=== PATIENT | female | born 1975 | race Caucasian/White ===

== ENCOUNTER 2024-08-01 17:48 | Emergency (ER) | payer SELFPAY ==
--- NOTE | 2024-08-01 19:42 | RAD REPORT ---
EXAM: XR Knee Right 3 View HISTORY: [facility] MAIN PAIN Bed Name: [id number] COMPARISON: None TECHNIQUE: 3 views of the right knee were obtained. FINDINGS: Moderate knee effusion is seen. There is no evidence of acute fracture or dislocation. Mil d to moderate degenerative changes with some joint space loss most notable at the medial weightbearing compartment. No soft tissue swelling or other soft tissue abnormality is present. IMPRESSION: No evidence of acute osseous abnormality. Moderate knee joint effusion. Up to moderate os teoarthritic changes.
--- NOTE | 2024-08-01 19:43 | RAD REPORT ---
EXAMINATION: US RIGHT LOWER EXTREMITY VENOUS DOPPLER CLINICAL INDICATION: [facility] MAIN right leg Pain;Swelling Bed Name: [id number] Y TECHNIQUE: Complete bilateral duplex sonography of the RIGHT lower extremity veins was performed. The examination included compression for vein patency, color Doppler imaging and flow augmentation in response to distal compression of the distal external iliac, common femoral, femoral, popliteal, tibi al, and great and small saphenous veins. COMPARISON: No prior exam. FINDINGS: Duplex sonography testing of the veins of the RIGHT lower extremity was performed. Color flow imaging shows all veins to be compressible with [id number] color filling. Pulsatile and phasic flow is present within all lower extremity deep and superficial veins examined. IMPRESSION: No evidence of deep venous thrombosis.
[2024-08-01] MEDS ORDERED: HYDROCODONE/APAP 7.5/325 MG TAB ONE (20:37)
--- NOTE | 2024-08-01 20:38 | EDPHYS ---
Physician Documentation [facility] Name: Cyndie Caban Age: 49 yrs Sex: Female : 1975 Arrival Date: 08/01/2024 Time: 17:48 Bed 12 Private MD: ED Physician Artie Lerner HPI: 08/01 18:40 This 49 yrs old Female presents to ER via Wheelchair with complaints of Knee Pain. cp 18:40 The patient presents with pain, that is acute. cp 18:40 The complaints affect the right knee. Context: resulted from an unknown cause, patient cp does reports walking more over past several days. Onset: The symptoms/episode began/occurred over past couple days. Associated signs and symptoms: Pertinent positives: calf tenderness, swelling, Pertinent negatives fever, numbness, rash, warmth, weakness. Treatment prior to arrival includes: no previous treatment. Historical: - Allergies: 18:34 No Known Allergies; aa5 - PMHx: 18:34 Breast Cancer; Gastric ulcers; aa5 - PSHx: 18:34 Lymph nodes removed from right arm; Right mastectomy; aa5 - Immunization history:: Adult Immunizations unknown. - Infectious Disease History:: Denies. - Social history:: Smoking status: Patient reports the use of cigarette tobacco products. ROS: 18:45 MS/extremity: Positive for decreased range of motion, pain, swelling, tenderness, of cp the right knee, Negative for injury or acute deformity, paresthesias, 18:45 Eyes: Negative for injury, pain, redness, and discharge, cp 18:45 Constitutional: Negative for body aches, chills, fever, poor PO intake, 18:45 ENT: Negative for ear pain, sore throat, 18:45 Cardiovascular: Negative for chest pain, edema, palpitations, 18:45 Respiratory: Negative for cough, wheezing, 18:45 Abdomen/GI: Negative for abdominal pain, nausea, vomiting, and diarrhea, 18:45 Skin: Negative for cellulitis, rash, 18:45 All other systems are negative, Exam: 18:50 Constitutional: The patient appears in no acute distress, alert, awake, cp non-diaphoretic, non-toxic, well developed, well nourished, uncomfortable, 18:50 Head/Face: Normocephalic, atraumatic. cp 18:50 Eyes: Periorbital structures: appear normal, Conjunctiva: normal, Sclera: no appreciated abnormality, Lids and lashes: appear normal, bilaterally, 18:50 ENT: External ear(s): are unremarkable, Nose: is normal, Mouth: Lips: moist, 18:50 Chest/axilla: Inspection: normal, 18:50 Cardiovascular: Rate: tachycardic, 18:50 Respiratory: the patient does not display signs of respiratory distress, Respirations: normal, no use of accessory muscles, no retractions, labored breathing, is not present, Breath sounds: are clear throughout, no decreased breath sounds, no stridor, no wheezing, 18:50 Abdomen/GI: Exam negative for discomfort, distension, guarding, Inspection: abdomen appears normal, 18:50 Back: pain, is absent, ROM is normal, 18:50 Musculoskeletal/extremity: Extremities: noted in the right knee: moderate swelling noted, tenderness, pain with passive ROM, overlying skin w/o signs of cellulitis, 18:50 Neuro: Orientation: to person, place \T\ time. Mentation: is normal, Vital Signs: 18:35 BP 146 / 83; Pulse 102; Resp 18 S; Temp 98.4(O); Pulse Ox 100% on R/A; Weight 83.91 kg aa5 (R); Height 5 ft. 6 in. (R); 21:18 BP 142 / 86; Pulse 99; Resp 18; Pulse Ox 100% ; vc1 18:35 Body Mass Index 29.86 (83.91 kg, 167.64 cm) aa5 Procedures: 20:40 Splinting: using knee immobilizer, Patient tolerated well, crutches given. cp MDM: 18:34 Medical Screening Exam initiated cp 20:00 Differential diagnosis: dislocation, closed fracture, septic joint, effusion, sprain. 20:38 Data reviewed: vital signs, nurses notes, radiologic studies, plain films, and as a cp result, I will discharge patient. 20:38 I considered the following discharge prescriptions or medication management in the emergency department Medications were administered in the Emergency Department. See MAR. Independent interpretation of the following test(s) in the Emergency Department X-Ray: My interpretation is images of right knee negative for fracture. Counseling: I had a detailed discussion with the patient and/or guardian regarding the historical points, exam findings, and any diagnostic results supporting the discharge/admit diagnosis, radiology results, the need for outpatient follow up, a orthopedic surgeon, to return to the emergency department if symptoms worsen or persist or if there are any questions or concerns that arise at home. Response to treatment: the patient's symptoms have mildly improved after treatment, and as a result, I will discharge patient. 08/01 18:35 Order name: US Extremity Venous Unilateral Ltd; Complete Time: 20:04 cp 08/01 18:35 Order name: XRAY Knee RIGHT 3 view; Complete Time: 20:04 cp 08/01 20:04 Interpretation: Report reviewed. cp 08/01 20:31 Order name: Knee Immobilizer; Complete Time: 21:00 cp Administered Medications: 20:38 Drug: Hydrocodone-Acetaminophen PO (7.5 mg-325 mg) 1 tabs PO once; RASS on ADMIN: vc1 Combtv4, Very Agttd3, Agttd2, Rstlss1, AlertClm0, Drwsy-1, Lt Sdtn-2, Mod Sdtn-3, Dp Sdtn-4, UnArsble-5 Route: PO; 21:19 Follow up: Response: Medication administered at discharge. vc1 Disposition Summary: 08/01/24 20:38 Discharge Ordered Notes: Location: Home cp Problem: new cp Symptoms: have improved cp Condition: Stable cp Diagnosis - Effusion, right knee cp - Pain in right knee cp Followup: cp - With: Papito Cook MD - When: 2 - 3 days - Reason: Recheck today's complaints Discharge Instructions: - Discharge Summary Sheet cp - Elastic Bandage and RICE Therapy cp - Knee Effusion cp - How to Use a Knee Immobilizer cp - Acute Knee Pain, Adult cp Forms: - Medication Reconciliation Form cp - Antibiotic Education cp - Prescription Opioid Use cp - Patient Portal Instructions cp - Leadership Thank You Letter cp Prescriptions: - Anaprox DS 550 mg Oral Tablet - take 1 tablet ORAL route every 12 hours As needed; 20 tablet; Refills: 0, cp Product Selection Permitted - Tramadol 50 mg Oral Tablet - take 1 tablet ORAL route every 8 hours as needed; 12 tablet; Refills: 0, cp Product Selection Permitted Signatures: Dispatcher [facility] Crystal Ely RN RN aa5 Page, Jim, PA PA cp Calcote, Estefani, RN RN vc1 Corrections: (The following items were deleted from the chart) 18:35 18:35 Extremity Venous Uni Ltd+US.RAD.BRZ ordered. EDMS EDMS 18:35 18:35 Knee Right 3 View+RAD.RAD.BRZ ordered. EDMS EDMS 20:38 20:21 Crutches ordered. cp vc1 08/02 18:22 12 18:40 This 49 yrs old Female presents to ER via Wheelchair with complaints of cp Knee Pain. cp 08/02 18:25 18:24 Splinting: using knee immobilizer, Patient tolerated well, crutches given. cp cp
--- NOTE | 2024-08-01 20:38 | ER ---
Nurse's Notes [facility] Name: Cyndie Caban Age: 49 yrs Sex: Female : 1975 Arrival Date: 08/01/2024 Time: 17:48 Bed 12 Private MD: Diagnosis: Effusion, right knee;Pain in right knee Presentation: 08/01 18:35 Chief complaint: Patient states: right knee pain and swelling. Coronavirus screen: At aa5 this time, the client does not indicate any symptoms associated with coronavirus-19. Ebola Screen: Patient denies travel to an Ebola-affected area in the 21 days before illness onset. Initial Sepsis Screen: Does the patient meet any 2 criteria? HR > 90 bpm. Does the patient have a suspected source of infection? No. Patient's initial sepsis screen is negative. Risk Assessment: Do you want to hurt yourself or someone else? Patient reports no desire to harm self or others. Onset of symptoms was August 01, 2024. 18:35 Method Of Arrival: Wheelchair aa5 18:35 Acuity: ISAAK 4 aa5 Historical: - Allergies: 18:34 No Known Allergies; aa5 - PMHx: 18:34 Breast Cancer; Gastric ulcers; aa5 - PSHx: 18:34 Lymph nodes removed from right arm; Right mastectomy; aa5 - Immunization history:: Adult Immunizations unknown. - Infectious Disease History:: Denies. - Social history:: Smoking status: Patient reports the use of cigarette tobacco products. Screenin:17 [facility] ED Fall Risk Assessment (Adult) History of falling in the last 3 months, vc1 including since admission No falls in past 3 months (0 pts) Confusion or Disorientation No (0 pts) Intoxicated or Sedated No (0 pts) Impaired Gait No (0 pts) Mobility Assist Device Used No (0 pt) Altered Elimination No (0 pt) Score/Fall Risk Level 0 - 2 = Low Risk Oriented to surroundings, Maintained a safe environment, Educated pt \T\ family on fall prevention, incl call for assistance when getting out of bed. Abuse screen: Denies threats or abuse. Nutritional screening: No deficits noted. Tuberculosis screening: No symptoms or risk factors identified. Vital Signs: 18:35 BP 146 / 83; Pulse 102; Resp 18 S; Temp 98.4(O); Pulse Ox 100% on R/A; Weight 83.91 kg aa5 (R); Height 5 ft. 6 in. (R); 21:18 BP 142 / 86; Pulse 99; Resp 18; Pulse Ox 100% ; vc1 18:35 Body Mass Index 29.86 (83.91 kg, 167.64 cm) aa5 ED Course: 18:10 Patient arrived in ED. mg5 18:14 Jim Ibarra PA is PHCP. cp 18:14 Artie Lerner MD is Attending Physician. cp 18:34 Arm band placed on. aa5 18:37 Triage completed. aa5 18:56 US Extremity Venous Unilateral Ltd In Process Unspecified. EDMS 19:09 XRAY Knee RIGHT 3 view In Process Unspecified. EDMS 20:37 Papito Cook MD is Referral Physician. cp 21:18 No provider procedures requiring assistance completed. Patient did not have IV access vc1 during this emergency room visit. Administered Medications: 20:38 Drug: Hydrocodone-Acetaminophen PO (7.5 mg-325 mg) 1 tabs PO once; RASS on ADMIN: vc1 Combtv4, Very Agttd3, Agttd2, Rstlss1, AlertClm0, Drwsy-1, Lt Sdtn-2, Mod Sdtn-3, Dp Sdtn-4, UnArsble-5 Route: PO; 21:19 Follow up: Response: Medication administered at discharge. vc1 Medication: 21:18 VIS not applicable for this client. vc1 Outcome: 20:38 Discharge ordered by MD. cp 21:18 Discharged to home via wheelchair, with significant other, vc1 21:18 Condition: good 21:18 Discharge instructions given to patient, Instructed on discharge instructions, follow up and referral plans. medication usage, Demonstrated understanding of instructions, follow-up care, medications, Prescriptions given X 2, 21:19 Patient left the ED. vc1 Signatures: Dispatcher [employer] [facility] Crystal Davenport RN RN aa5 Jim Ibarra PA PA cp Estefani Griffin RN RN vc1 Matilde Mccrary mg5
[2024-08-01 23:56] VITALS: TEMP 98.4; O2SAT 100
[2024-08-01 23:57] VITALS: BP 142/86
== END 2024-08-01 21:19 | disposition home or self-care (01) ==
LOC: ER 17:48
DX: M25.461 Effusion, right knee (principal)
CPT/HCPCS: 93971; 99283